=== PATIENT | male | born 1980 | race Caucasian/White ===

== ENCOUNTER 2021-10-12 07:10 | Day surgery (SDC) | payer OTHER ==
[~2021-10-12] VITALS: Ht 175.3 cm; Wt 70.5 kg
[2021-10-12] VITALS (9 sets, daily range): BP systolic 94–137; BP diastolic 40–80
[2021-10-12 09:14] LABS: HEMOGLOBIN 14.3 g/dl (14.0-18.0); IMMATURE GRANULOCYTES 0.1 % (0.0-5.0); MEAN CELL VOLUME 95.5 fL CALC (80.0-100.0); MEAN CORPUSCULAR HGB 30.4 pG CALC (26.0-32.0); MEAN CORPUSCULAR HGB CONC 31.8 g/dL CAL (32.0-36.0); NEUT# 4.84 thou/uL (1.82-7.42); RED BLOOD COUNT 4.71 mill/uL (4.70-6.10)
[2021-10-12] MEDS ORDERED: FLUOXETINE20 MG PO (09:23)
[2021-10-12] MEDS ORDERED: NEXIUM20 M1 PO (09:23)
[2021-10-12] MEDS ORDERED: BUSPAR5 MG PO (09:24)
[2021-10-12 09:44] LABS: ALBUMIN 4.8 g/dL (3.2-5.0); ALKALINE PHOSPHATASE 111 u/l (38-126); ANION GAP 14 (6-22 (CALC)); BILIRUBIN, TOTAL 0.4 mg/dL (0.0-1.4); BUN 12 mg/dL (9-20); BUN/CREATININE RATIO 17 (12-20 (CALC)); CARBON DIOXIDE 30 mmol/l (22-30); CHLORIDE 102 mmol/l (95-108); CREATININE 0.7 mg/dL (0.7-1.3); DIRECT BILIRUBIN 0.3 mg/dl (0.0-0.3); GFR FOR AFR.AMER. > 60 ML/MIN (>=60 (CALC)); GFR OTHER RACES > 60 ML/MIN (>=60 (CALC)); SGOT/AST 27 u/l (17-59); SODIUM 142 mmol/l (137-146); TOTAL PROTEIN 7.7 g/dL (6.3-8.2)
[2021-10-13 03:06] VITALS: BP 130/65
[2021-10-13 06:18] LABS: ALKALINE PHOSPHATASE 90 u/l (38-126); BILIRUBIN, TOTAL 0.4 mg/dL (0.0-1.4); BUN 8 mg/dL (9-20); BUN/CREATININE RATIO 17 (12-20 (CALC)); CHLORIDE 105 mmol/l (95-108); CREATININE 0.5 mg/dL (0.7-1.3); GFR FOR AFR.AMER. > 60 ML/MIN (>=60 (CALC)); GFR OTHER RACES > 60 ML/MIN (>=60 (CALC)); MAGNESIUM 1.7 mg/dL (1.6-2.3); POTASSIUM 4.1 mmol/l (3.5-5.1); SGOT/AST 37 u/l (17-59)
[2021-10-13 06:37] LABS: ALBUMIN 3.7 g/dL (3.2-5.0); ANION GAP 11 (6-22 (CALC)); CARBON DIOXIDE 22 mmol/l (22-30); SODIUM 134 mmol/l (137-146)
[2021-10-13 07:51] VITALS: BP 105/52
[2021-10-13 07:55] VITALS: BP 105/52
== END 2021-10-13 13:34 | disposition home or self-care (01) | DRG 897 ==
LOC: MS2 07:10 → ANR 07:10
PROVIDERS: ATTEND Anesthesiology
DX: F11.20 Opioid dependence, uncomplicated (principal)
CPT/HCPCS: J2060